=== PATIENT | male | born 1935 | race Caucasian/White ===

== ENCOUNTER 2018-12-30 20:56 | Inpatient (IN) | payer OTHER, MEDICARE ==
[~2018-12-30] VITALS: Ht 190.5 cm; Wt 102.5 kg
[2018-12-30 21:16] VITALS: BP_SYST 155
[2018-12-30] MEDS ORDERED: NACL 0.9% 1,000 ML IV ONE (22:19)
[2018-12-30] MEDS ORDERED: fentaNYL CITRATE/PF 100 MCG/2 ML AMP IVP ONE (23:15)
[2018-12-30] MEDS ORDERED: DIPHENHYDRAMINE INJ 50 MG/ML VIAL IVP ONE (23:15)
[2018-12-30 23:19] LABS: HEMOGLOBIN 14.5 g/dL (14.0-18.0); RED BLOOD CELL COUNT(AUTO) 5.05 MIL/uL (4.2-6.2); WHITE BLOOD COUNT (AUTO) 14.2 K/uL (4.8-10.8)
[2018-12-30 23:20] LABS: BASOPHILS % (AUTO) 0.1 % (0.0-2.0); EOSINOPHILS # (AUTO) 0.1 K/uL (0.0-0.4); EOSINOPHILS % (AUTO) 0.8 % (0.0-4.0); LYMPHOCYTES # (AUTO) 0.8 K/uL (1.0-5.5); LYMPHOCYTES % (AUTO) 5.8 % (20.5-51.5); MEAN CORPUSCULAR HEMOGLOBIN 29 pg (27-31); MEAN CORPUSCULAR HGB CONC 34 % (32-36); MEAN CORPUSCULAR VOLUME 85 fL (79.0-98.0); MONOCYTES # (AUTO) 1.1 K/uL (0.0-1.0); MONOCYTES % (AUTO) 7.7 % (1.7-9.3); NEUTROPHILS # (AUTO) 12.2 K/uL (1.8-7.7); NEUTROPHILS % (AUTO) 85.6 % (40.0-70.0); PLATELET COUNT (AUTO) 259 K/uL (130-430); RED CELL DISTRIBUTION WIDTH 14.5 % (9.0-15.0)
[2018-12-30 23:33] LABS: INR 0.9 (0.80-1.20); PROTHROMBIN TIME 9.5 SECS (9.5-12.5)
[2018-12-30 23:37] LABS: ANION GAP 11 (5-15); CALCIUM 8.9 mg/dL (8.4-11.0); CHLORIDE 89 mmol/L (98-107); GLUCOSE 136 mg/dL (70-99); SODIUM SERUM 128 mmol/L (136-145); UREA NITROGEN, BLOOD 14 mg/dL (8-21)
[2018-12-30 23:40] LABS: BILIRUBIN,URINE NEGATIVE (NEGATIVE); CLARITY/URINE CLEAR (CLEAR); COLOR,URINE YELLOW (YELLOW); GLUCOSE,URINE NEGATIVE (NEGATIVE); KETONES,URINE NEGATIVE (NEGATIVE); LEUKOCYTE ESTERASE ,URINE NEGATIVE (NEGATIVE); NITRITE, URINE NEGATIVE (NEGATIVE); PROTEIN URINE NEGATIVE (NEGATIVE); UROBILINOGEN,URINE 0.2 (0.2-1.0)
[2018-12-30 23:41] LABS: BLOOD, URINE TRACE (NEGATIVE)
[2018-12-30 23:43] LABS: ALANINE AMINOTRANSFERASE 31 U/L (12-78); ASPARTATE AMINOTRANSFERASE 23 U/L (10-37); TOTAL BILIRUBIN 1.1 mg/dL (0.0-1.0)
[2018-12-30 23:43] LABS: BACTERIA,URINE FEW /HPF (None Seen); WBC,URINE 0-3 /HPF (0-3)
[2018-12-31] MEDS ORDERED: NS 500 ML IV ONE (00:15)
[2018-12-31] MEDS ORDERED: POTASSIUM CHLORIDE 20 MEQ TAB.PRT.SR PO ONE ×2 (00:15→14:30)
[2018-12-31] MEDS ORDERED: KCL 20 mEq in 100 mL (PREMIX) 100 ML IV ONE (00:15)
[2018-12-31] MEDS ORDERED: LUTE20TA PO (01:21)
[2018-12-31] MEDS ORDERED: DILT60TA3 PO (01:21)
[2018-12-31] MEDS ORDERED: CEPH-568 PO (01:21)
[2018-12-31] MEDS ORDERED: [UNRECOGNIZED DRUG - CODE] PO (01:21)
[2018-12-31] MEDS ORDERED: PROCHLORPERAZINE EDISYLATE 10 MG/2 ML VIAL IVP ONE (01:45)
[2018-12-31] MEDS ORDERED: DIPHENHYDRAMINE INJ 50 MG/ML VIAL IVP ONE (01:45)
[2018-12-31] MEDS ORDERED: fentaNYL CITRATE/PF 100 MCG/2 ML AMP IVP ONE (01:45)
[2018-12-31 03:00] VITALS: BP_SYST 147
[2018-12-31] MEDS ORDERED: ONDANSETRON HCL 4 MG/2 ML VIAL IVP PRN (06:45)
[2018-12-31] MEDS ORDERED: DIPHENHYDRAMINE HCL 25 MG CAPSULE PO PRN (06:45)
[2018-12-31] MEDS: HYDROmorphone 1 MG INJ. 1 MG/ML AMPUL IVP PRN ×3 (06:50→23:00)
[2018-12-31 07:30] VITALS: BP_SYST 133
[2018-12-31] MEDS ORDERED: BUPIVACAINE /PF 0.25% 30 ML VIAL INJ ONE (09:40)
[2018-12-31] MEDS ORDERED: PROPOFOL 200MG/ 20ML VIAL (DIPRIVAN) IV ONE (09:40)
[2018-12-31] MEDS ORDERED: BUPIVACAINE LIPOSOME/PF 266 MG/20 ML VIAL INFIL ONE (09:40)
[2018-12-31] MEDS ORDERED: MIDAZOLAM HCL 5 MG/5 ML VIAL IVP ONE (09:40)
[2018-12-31] MEDS ORDERED: NORMAL SALINE 10 ML VIAL IVP ONE (09:40)
[2018-12-31] MEDS ORDERED: LR 1,000 ML IV.SOLN IV ONE (09:40)
[2018-12-31] MEDS ORDERED: CLINDAMYCIN PHOSPHATE 900 MG/6 ML VIAL IV ONE (09:40)
[2018-12-31] MEDS ORDERED: ONDANSETRON HCL 4 MG/2 ML VIAL IVP ONE (09:40)
[2018-12-31 12:18] VITALS: BP_SYST 139
[2018-12-31 15:04] LABS: HEMATOCRIT 37.2 % (36-54); HEMOGLOBIN 12.9 g/dL (14.0-18.0); MEAN CORPUSCULAR HEMOGLOBIN 30 pg (27-31); MEAN CORPUSCULAR HGB CONC 35 % (32-36); MEAN CORPUSCULAR VOLUME 85 fL (79.0-98.0); PLATELET COUNT (AUTO) 230 K/uL (130-430); RED BLOOD CELL COUNT(AUTO) 4.36 MIL/uL (4.2-6.2); RED CELL DISTRIBUTION WIDTH 14.7 % (9.0-15.0); WHITE BLOOD COUNT (AUTO) 9.2 K/uL (4.8-10.8)
[2018-12-31 15:05] LABS: BASOPHILS % (AUTO) 0.2 % (0.0-2.0); EOSINOPHILS # (AUTO) 0.1 K/uL (0.0-0.4); EOSINOPHILS % (AUTO) 1.3 % (0.0-4.0); LYMPHOCYTES % (AUTO) 10.9 % (20.5-51.5); MONOCYTES # (AUTO) 1.1 K/uL (0.0-1.0); MONOCYTES % (AUTO) 11.7 % (1.7-9.3); NEUTROPHILS % (AUTO) 75.9 % (40.0-70.0)
[2018-12-31 15:09] VITALS: BP_SYST 150
[2018-12-31 15:13] LABS: ANION GAP 5 (5-15); CALCIUM 8.5 mg/dL (8.4-11.0); CHLORIDE 91 mmol/L (98-107); CREATININE 1.04 mg/dL (0.55-1.30); GLUCOSE 114 mg/dL (70-99); POTASSIUM 3.9 mmol/L (3.5-5.1); SODIUM SERUM 124 mmol/L (136-145); UREA NITROGEN, BLOOD 14 mg/dL (8-21)
[2018-12-31] MEDS ORDERED: MILK OF MAGNESIA 30 ML UDC PO PRN (15:15)
[2018-12-31] MEDS ORDERED: ENOXAPARIN SODIUM 30 MG/0.3 ML SYRINGE SUBCUT ONE (15:45)
[2018-12-31] MEDS: NACL 0.9% 1,000 ML IV SCH (16:37)
[2018-12-31] MEDS ORDERED: OLMESARTAN MEDOXOMIL 20 MG TABLET PO SCH (19:15)
[2018-12-31 19:25] VITALS: BP_SYST 143
[2018-12-31] MEDS ORDERED: CARVEDILOL 3.125 MG TABLET (COREG) PO SCH (21:00)
[2018-12-31] MEDS: ERYTHROMYCIN BASE 0.5% EYE OINT...G. OP SCH (21:00)
[2018-12-31] MEDS ORDERED: DILTIAZEM HCL 60 MG TABLET PO SCH (21:00)
[2018-12-31] MEDS ORDERED: CEPHALEXIN 500 MG CAPSULE PO SCH (21:00)
[2018-12-31] MEDS: DOCUSATE SODIUM 100 MG CAPSULE PO SCH (21:49)
[2019-01-01 00:31] VITALS: BP_SYST 154
[2019-01-01 06:47] LABS: ANION GAP 6 (5-15); CALCIUM 8.1 mg/dL (8.4-11.0); CHLORIDE 92 mmol/L (98-107); CREATININE 0.91 mg/dL (0.55-1.30); GLUCOSE 116 mg/dL (70-99); POTASSIUM 3.8 mmol/L (3.5-5.1); SODIUM SERUM 124 mmol/L (136-145); UREA NITROGEN, BLOOD 14 mg/dL (8-21)
[2019-01-01] MEDS: ENOXAPARIN SODIUM 30 MG/0.3 ML SYRINGE SUBCUT SCH (07:18)
[2019-01-01 07:38] VITALS: BP_SYST 159
[2019-01-01 08:21] LABS: RED BLOOD CELL COUNT(AUTO) 4.32 MIL/uL (4.2-6.2); WHITE BLOOD COUNT (AUTO) 9.2 K/uL (4.8-10.8)
[2019-01-01 08:22] LABS: BASOPHILS % (AUTO) 0.2 % (0.0-2.0); EOSINOPHILS # (AUTO) 0.2 K/uL (0.0-0.4); EOSINOPHILS % (AUTO) 2.4 % (0.0-4.0); HEMATOCRIT 37.1 % (36-54); HEMOGLOBIN 12.6 g/dL (14.0-18.0); LYMPHOCYTES # (AUTO) 0.9 K/uL (1.0-5.5); LYMPHOCYTES % (AUTO) 9.7 % (20.5-51.5); MEAN CORPUSCULAR HEMOGLOBIN 29 pg (27-31); MEAN CORPUSCULAR HGB CONC 34 % (32-36); MEAN CORPUSCULAR VOLUME 86 fL (79.0-98.0); MONOCYTES % (AUTO) 11.3 % (1.7-9.3); NEUTROPHILS % (AUTO) 76.4 % (40.0-70.0); PLATELET COUNT (AUTO) 208 K/uL (130-430); RED CELL DISTRIBUTION WIDTH 14.7 % (9.0-15.0)
[2019-01-01] MEDS: CARVEDILOL 3.125 MG TABLET (COREG) PO SCH ×2 (08:30→17:02)
[2019-01-01] MEDS: DOCUSATE SODIUM 100 MG CAPSULE PO SCH ×2 (09:00→20:02)
[2019-01-01] MEDS: LOSARTAN POTASSIUM 50 MG TABLET (COZAAR) PO SCH (09:00)
[2019-01-01] MEDS ORDERED: NON-FORMULARY MEDICATION (Lutein 20 MG) PO SCH (09:00)
[2019-01-01] MEDS: ERYTHROMYCIN BASE 0.5% EYE OINT...G. OP SCH ×4 (09:00→20:02)
[2019-01-01] MEDS ORDERED: POLYMYXIN 500,000/BACIT.10,000 UNITS in NS IRR 1 L IR ONE (10:48)
[2019-01-01] MEDS ORDERED: KETOROLAC TROMETHAMINE 60 MG/2 ML VIAL IM PRN (11:00)
[2019-01-01] MEDS ORDERED: NALOXONE HCL 0.4 MG/ML AMP (NARCAN) IVP PRN ×2 (11:00)
[2019-01-01] MEDS ORDERED: ONDANSETRON HCL 4 MG/2 ML VIAL IVP PRN ×2 (11:00)
[2019-01-01] MEDS ORDERED: MORPHINE SULFATE 10MG/10ML PF AMP SP SCH (11:00)
[2019-01-01] MEDS ORDERED: fentaNYL CITRATE/PF 100 MCG/2 ML AMP IVP PRN ×2 (11:00)
[2019-01-01] MEDS ORDERED: DIPHENHYDRAMINE INJ 50 MG/ML VIAL IVP PRN (11:00)
[2019-01-01] MEDS ORDERED: NALBUPHINE HCL 10 MG/ML AMP IVP PRN (11:00)
[2019-01-01] MEDS ORDERED: BUPIVACAINE LIPOSOME/PF 266 MG/20 ML VIAL INFIL ONE (12:00)
[2019-01-01 13:03] VITALS: BP_SYST 138
[2019-01-01] MEDS: CLINDAMYCIN 900 MG in D5W 50 ML IV SCH ×2 (14:09→21:15)
[2019-01-01] MEDS: NACL 0.9% 1,000 ML IV SCH (14:10)
[2019-01-01 19:59] VITALS: BP_SYST 141
[2019-01-02 01:31] VITALS: BP_SYST 118
[2019-01-02] MEDS: CLINDAMYCIN 900 MG in D5W 50 ML IV SCH (05:01)
[2019-01-02] MEDS: NACL 0.9% 1,000 ML IV SCH (05:01)
[2019-01-02 06:19] LABS: ANION GAP 5 (5-15); CALCIUM 7.8 mg/dL (8.4-11.0); CHLORIDE 97 mmol/L (98-107); CREATININE 1.12 mg/dL (0.55-1.30); GLUCOSE 112 mg/dL (70-99); POTASSIUM 3.8 mmol/L (3.5-5.1); SODIUM SERUM 130 mmol/L (136-145); UREA NITROGEN, BLOOD 19 mg/dL (8-21)
[2019-01-02 07:43] LABS: HEMATOCRIT 31.6 % (36-54); MEAN CORPUSCULAR HEMOGLOBIN 30 pg (27-31); MEAN CORPUSCULAR HGB CONC 35 % (32-36); MEAN CORPUSCULAR VOLUME 87 fL (79.0-98.0); PLATELET COUNT (AUTO) 302 K/uL (130-430); RED BLOOD CELL COUNT(AUTO) 3.63 MIL/uL (4.2-6.2); RED CELL DISTRIBUTION WIDTH 14.9 % (9.0-15.0)
[2019-01-02 07:44] LABS: BASOPHILS # (AUTO) 0.1 K/uL (0.0-0.2); BASOPHILS % (AUTO) 1.3 % (0.0-2.0); EOSINOPHILS # (AUTO) 0.4 K/uL (0.0-0.4); EOSINOPHILS % (AUTO) 3.3 % (0.0-4.0); LYMPHOCYTES # (AUTO) 1.3 K/uL (1.0-5.5); LYMPHOCYTES % (AUTO) 11.5 % (20.5-51.5); MONOCYTES # (AUTO) 1.4 K/uL (0.0-1.0); MONOCYTES % (AUTO) 12.8 % (1.7-9.3); NEUTROPHILS # (AUTO) 7.9 K/uL (1.8-7.7); NEUTROPHILS % (AUTO) 71.1 % (40.0-70.0)
[2019-01-02 08:09] VITALS: BP_SYST 148
[2019-01-02] MEDS: LOSARTAN POTASSIUM 50 MG TABLET (COZAAR) PO SCH (08:48)
[2019-01-02] MEDS: DOCUSATE SODIUM 100 MG CAPSULE PO SCH ×2 (08:48→21:58)
[2019-01-02] MEDS: ERYTHROMYCIN BASE 0.5% EYE OINT...G. OP SCH ×4 (08:49→21:58)
[2019-01-02] MEDS: ENOXAPARIN SODIUM 30 MG/0.3 ML SYRINGE SUBCUT SCH (08:50)
[2019-01-02] MEDS: CARVEDILOL 3.125 MG TABLET (COREG) PO SCH ×2 (08:53→18:37)
[2019-01-02] MEDS: HYDROmorphone 1 MG INJ. 1 MG/ML AMPUL IVP PRN ×3 (10:11→23:30)
[2019-01-02 12:35] VITALS: BP_SYST 96
[2019-01-02 16:35] VITALS: BP_SYST 139
[2019-01-02 20:00] VITALS: BP_SYST 130
[2019-01-03] VITALS: BP_SYST 139
[2019-01-03] MEDS: NACL 0.9% 1,000 ML IV SCH (05:57)
[2019-01-03 08:20] VITALS: BP_SYST 160
[2019-01-03] MEDS: CARVEDILOL 3.125 MG TABLET (COREG) PO SCH ×2 (08:45→17:54)
[2019-01-03] MEDS: LOSARTAN POTASSIUM 50 MG TABLET (COZAAR) PO SCH (08:45)
[2019-01-03] MEDS: DOCUSATE SODIUM 100 MG CAPSULE PO SCH ×2 (08:45→20:04)
[2019-01-03] MEDS: ERYTHROMYCIN BASE 0.5% EYE OINT...G. OP SCH ×4 (08:46→20:07)
[2019-01-03] MEDS: ENOXAPARIN SODIUM 30 MG/0.3 ML SYRINGE SUBCUT SCH (08:46)
[2019-01-03] MEDS: HYDROmorphone 1 MG INJ. 1 MG/ML AMPUL IVP PRN ×2 (09:08→20:03)
[2019-01-03] MEDS ORDERED: CEPHALEXIN 500 MG CAPSULE PO ONE (12:15)
[2019-01-03 12:51] VITALS: BP_SYST 162
[2019-01-03 16:30] VITALS: BP_SYST 158
[2019-01-03 20:00] VITALS: BP_SYST 159
[2019-01-03] MEDS: CEPHALEXIN 500 MG CAPSULE PO SCH (20:04)
[2019-01-04] MEDS: HYDROmorphone 1 MG INJ. 1 MG/ML AMPUL IVP PRN ×2 (00:33→09:09)
[2019-01-04] MEDS: NACL 0.9% 1,000 ML IV SCH ×2 (00:33→20:19)
[2019-01-04 00:37] VITALS: BP_SYST 156
[2019-01-04 08:07] VITALS: BP_SYST 161
[2019-01-04] MEDS: CEPHALEXIN 500 MG CAPSULE PO SCH (09:07)
[2019-01-04] MEDS: DOCUSATE SODIUM 100 MG CAPSULE PO SCH ×2 (09:07→20:20)
[2019-01-04] MEDS: LOSARTAN POTASSIUM 50 MG TABLET (COZAAR) PO SCH (09:08)
[2019-01-04] MEDS: CARVEDILOL 3.125 MG TABLET (COREG) PO SCH ×2 (09:08→17:21)
[2019-01-04] MEDS: ENOXAPARIN SODIUM 30 MG/0.3 ML SYRINGE SUBCUT SCH (09:09)
[2019-01-04] MEDS: ERYTHROMYCIN BASE 0.5% EYE OINT...G. OP SCH ×4 (09:10→20:20)
[2019-01-04] MEDS ORDERED: LINEZOLID 300 ML IV ONE (11:00)
[2019-01-04 12:04] VITALS: BP_SYST 113
[2019-01-04 16:49] VITALS: BP_SYST 153
[2019-01-04 20:00] VITALS: BP_SYST 144
[2019-01-04] MEDS ORDERED: LINEZOLID 300 ML IV SCH (21:00)
[2019-01-05 00:40] VITALS: BP_SYST 159
[2019-01-05] MEDS: HYDROmorphone 1 MG INJ. 1 MG/ML AMPUL IVP PRN ×3 (05:08→20:37)
[2019-01-05 05:18] VITALS: BP_SYST 132
[2019-01-05] MEDS: ERYTHROMYCIN BASE 0.5% EYE OINT...G. OP SCH ×4 (09:00→20:36)
[2019-01-05] MEDS: DOCUSATE SODIUM 100 MG CAPSULE PO SCH ×2 (09:00→20:37)
[2019-01-05] MEDS: LOSARTAN POTASSIUM 50 MG TABLET (COZAAR) PO SCH (09:07)
[2019-01-05] MEDS: CARVEDILOL 3.125 MG TABLET (COREG) PO SCH ×2 (09:08→17:36)
[2019-01-05] MEDS: ENOXAPARIN SODIUM 30 MG/0.3 ML SYRINGE SUBCUT SCH (09:11)
[2019-01-05] MEDS ORDERED: DOXYCYCLINE HYCLATE 100 MG in D5W 100 ML IV ONE (11:30)
[2019-01-05 12:14] VITALS: BP_SYST 149
[2019-01-05] MEDS: NACL 0.9% 1,000 ML IV SCH ×2 (15:30→20:36)
[2019-01-05 16:02] VITALS: BP_SYST 150
[2019-01-05 20:00] VITALS: BP_SYST 158
[2019-01-05] MEDS: DOXYCYCLINE HYCLATE 100 MG in D5W 100 ML IV SCH (20:36)
[2019-01-06 00:24] VITALS: BP_SYST 132
[2019-01-06 07:44] LABS: HEMATOCRIT 31.5 % (36-54); HEMOGLOBIN 10.8 g/dL (14.0-18.0); MEAN CORPUSCULAR HEMOGLOBIN 29 pg (27-31); MEAN CORPUSCULAR VOLUME 85 fL (79.0-98.0); RED BLOOD CELL COUNT(AUTO) 3.71 MIL/uL (4.2-6.2); WHITE BLOOD COUNT (AUTO) 7.5 K/uL (4.8-10.8)
[2019-01-06 07:45] LABS: BASOPHILS % (AUTO) 0.2 % (0.0-2.0); EOSINOPHILS # (AUTO) 0.7 K/uL (0.0-0.4); EOSINOPHILS % (AUTO) 9.2 % (0.0-4.0); LYMPHOCYTES # (AUTO) 0.9 K/uL (1.0-5.5); LYMPHOCYTES % (AUTO) 12.5 % (20.5-51.5); MEAN CORPUSCULAR HGB CONC 34 % (32-36); MONOCYTES # (AUTO) 0.8 K/uL (0.0-1.0); MONOCYTES % (AUTO) 10.6 % (1.7-9.3); NEUTROPHILS # (AUTO) 5.1 K/uL (1.8-7.7); NEUTROPHILS % (AUTO) 67.5 % (40.0-70.0); PLATELET COUNT (AUTO) 266 K/uL (130-430); RED CELL DISTRIBUTION WIDTH 14.6 % (9.0-15.0)
[2019-01-06 08:34] VITALS: BP_SYST 137
[2019-01-06] MEDS: DOCUSATE SODIUM 100 MG CAPSULE PO SCH ×2 (08:39→21:28)
[2019-01-06] MEDS: LOSARTAN POTASSIUM 50 MG TABLET (COZAAR) PO SCH (08:39)
[2019-01-06] MEDS: CARVEDILOL 3.125 MG TABLET (COREG) PO SCH ×2 (08:40→17:36)
[2019-01-06] MEDS: HYDROmorphone 1 MG INJ. 1 MG/ML AMPUL IVP PRN ×3 (08:40→21:28)
[2019-01-06] MEDS: DOXYCYCLINE HYCLATE 100 MG in D5W 100 ML IV SCH ×2 (08:40→21:26)
[2019-01-06] MEDS: ERYTHROMYCIN BASE 0.5% EYE OINT...G. OP SCH ×4 (08:42→21:29)
[2019-01-06] MEDS: ENOXAPARIN SODIUM 30 MG/0.3 ML SYRINGE SUBCUT SCH (08:42)
[2019-01-06 12:02] VITALS: BP_SYST 117
[2019-01-06 16:02] VITALS: BP_SYST 144
[2019-01-06] MEDS ORDERED: FLUCONAZOLE 200 MG TABLET (DIFLUCAN) PO ONE (17:15)
[2019-01-06 20:00] VITALS: BP_SYST 146
[2019-01-06] MEDS ORDERED: MUPIROCIN 2% TOPICAL OINTMENT 22 GM TP SCH (21:00)
[2019-01-06 23:33] VITALS: BP_SYST 119
[2019-01-07] MEDS: HYDROmorphone 1 MG INJ. 1 MG/ML AMPUL IVP PRN ×3 (04:32→18:02)
[2019-01-07] MEDS: NACL 0.9% 1,000 ML IV SCH (07:30)
[2019-01-07 08:10] VITALS: BP_SYST 149
[2019-01-07] MEDS ORDERED: FLUCONAZOLE 200 MG TABLET (DIFLUCAN) PO SCH (09:00)
[2019-01-07] MEDS: CARVEDILOL 3.125 MG TABLET (COREG) PO SCH ×2 (09:38→17:32)
[2019-01-07] MEDS: ERYTHROMYCIN BASE 0.5% EYE OINT...G. OP SCH ×3 (09:39→17:31)
[2019-01-07] MEDS: LOSARTAN POTASSIUM 50 MG TABLET (COZAAR) PO SCH (09:39)
[2019-01-07] MEDS: DOCUSATE SODIUM 100 MG CAPSULE PO SCH (09:39)
[2019-01-07] MEDS: DOXYCYCLINE HYCLATE 100 MG in D5W 100 ML IV SCH (09:39)
[2019-01-07] MEDS: ENOXAPARIN SODIUM 30 MG/0.3 ML SYRINGE SUBCUT SCH (09:44)
[2019-01-07 12:03] VITALS: BP_SYST 135
[2019-01-07 16:45] VITALS: BP_SYST 143
[2019-01-07 17:12] VITALS: BP_SYST 143
[2019-01-07] MEDS ORDERED: DOXYCYCLINE HYCLATE 100 MG CAPSULE PO SCH (21:00)
== END 2019-01-07 18:30 | DRG 481 ==
LOC: SED 20:56 → SMU 12-31 01:56
PROVIDERS: ADMIT Family Medicine; ATTEND Family Medicine
PROC: 0QS606Z Reposition Right Upper Femur with Intramedullary Internal Fixation Device, Open Approach (ICD-10-PCS; principal; 2018-12-31)
DX: S72.141A Displaced intertrochanteric fracture of right femur, initial encounter for closed fracture (principal); L03.311 Cellulitis of abdominal wall; E66.3 Overweight; I10 Essential (primary) hypertension; M19.90 Unspecified osteoarthritis, unspecified site; E66.9 Obesity, unspecified; D64.9 Anemia, unspecified; B35.8 Other dermatophytoses; K11.21 Acute sialoadenitis; W01.0XXA Fall on same level from slipping, tripping and stumbling without subsequent striking against object, initial encounter; Y93.89 Activity, other specified; Y92.89 Other specified places as the place of occurrence of the external cause; Y99.8 Other external cause status; Z85.828 Personal history of other malignant neoplasm of skin; Z88.0 Allergy status to penicillin; Z68.28 Body mass index [BMI] 28.0-28.9, adult; Z88.1 Allergy status to other antibiotic agents; Z88.5 Allergy status to narcotic agent; Z88.8 Allergy status to other drugs, medicaments and biological substances; Z85.22 Personal history of malignant neoplasm of nasal cavities, middle ear, and accessory sinuses
CPT/HCPCS: 36415; 71045; 72170-TC; 73502; 76000; 80048; 80053; 81000-TC; 84484; 85025; 85610-TC; 85730-TC; 87081; 93005; 93306; 96361; 96365; 96366; 96375; 96376; 97110-GP; 97116-GP; 97530-GP; 99285; C1713; C9290; J0780; J1170; J1200; J1650; J1885; J1956; J2020; J2250; J2274; J2405; J2704; J3010; J3480; J3490; J7030; J7040; J7060; J7120; Q0163